=== PATIENT | male | born 1995 | race Caucasian/White ===

== ENCOUNTER 2022-02-03 18:51 | Emergency (ER) | payer OTHER ==
[~2022-02-03] VITALS: Ht 182.9 cm; Wt 90.2 kg
[2022-02-03] MEDS ORDERED: diphenhydrAMINE 50MG/ML VIAL (J1200) IV ONE (20:45)
[2022-02-03] MEDS ORDERED: methylPREDNISolone 125MG 2ML VIAL IV ONE (20:45)
[2022-02-03] MEDS ORDERED: NS 1,000 ML IV ONE (20:45)
[2022-02-03] MEDS ORDERED: BENA25CA4 PO (22:24)
[2022-02-03] MEDS ORDERED: PRED20TA PO (22:24)
[2022-02-03 23:06] VITALS: BP 136/76
== END 2022-02-04 00:20 | disposition home or self-care (01) ==
LOC: M ED 18:51
DX: T78.40XA Allergy, unspecified, initial encounter (principal); R22.0 Localized swelling, mass and lump, head
CPT/HCPCS: 93041; 94760; 96361; 96374; 99285; J1200; J2930